=== PATIENT | female | born 1945 | race Caucasian/White ===

== ENCOUNTER 2019-08-22 23:06 | Emergency (ER) | payer OTHER ==
[~2019-08-22] VITALS: Ht 152.4 cm; Wt 56.2 kg
[~2019-08-22 23:06] MED LIST: CAPTOPRIL25 MG PO; COREG PO
[2019-08-22] MEDS ORDERED: CARVEDILOL ER40 MG (23:57)
[2019-08-22] MEDS ORDERED: COZAAR25 MG (23:58)
[2019-08-22] MEDS ORDERED: AMLODIPINE-OLM1 EAC3 (23:58)
[2019-08-22] MEDS ORDERED: ASPIR 8181 MG (23:58)
== END 2019-08-23 13:38 | disposition home or self-care (01) ==
LOC: ER 23:06
DX: R42 Dizziness and giddiness (principal)
CPT/HCPCS: 70551

== ENCOUNTER 2021-06-04 08:00 | Outpatient (CLI) | payer OTHER ==
[~2021-06-04 08:00] MED LIST changes: +AMLODIPINE-OLM1 EAC3; +ASPIR 8181 MG; +CARVEDILOL ER40 MG; +COZAAR25 MG
== END 2021-06-04 08:30 | disposition home or self-care (01) ==
LOC: PPH VACUNA 08:00
PROVIDERS: ATTEND Emergency Medicine Pediatric Emergency Medicine
DX: Z23 Encounter for immunization (principal)